=== PATIENT | female | born 1960 | race Caucasian/White ===

== ENCOUNTER → 2017-08-24 10:57 | Outpatient (CLI) | payer BC, SELFPAY ==
--- NOTE | 2017-08-24 11:15 | XR_ITS ---
XR foot LT min 3V, XR ankle LT min 3V Ordering Physician: Yelitza Maldonado DPM Patient Age: 56 years: Female HISTORY: TECHNIQUE: LEFT FOOT 3 views weightbearing LEFT ANKLE 3 view weightbearing COMPARISON :February 03, 2013 left foot series ====== LEFT ANKLE 3 view weightbearing LEFT FOOT 3 views weightbearing These studies are reviewed together. At the left foot, Longitudinal screws enters at the base of the fifth metatarsal (2013 there has been complete healing at the previously noted fracture proximal fifth met partial. Progressive arthritic changes are seen at the tarsometatarsal joints particularly third fourth and fifth. Also arthritic changes throughout the tarsals. . On the current weightbearing lateral view likely rotated somewhat fifth metatarsal is quite inferiorly positioned and appears to be more inferiorly positioned, plantar position than the calcaneus on this particular projection. This yields a somewhat rocker bottom appearance plantar aspect of foot. Similar appearance is seen on the lateral ankle view clinical correlation required. Prominent hammertoe/ flexion deformity at the toes evident on today's again viewed with significant change in this regard since 2012 reviewed . The previous generous 14.5 mm plantar calcaneal spur no longer evident delineated. The left ankle mortise seems to be intact. Again the lateral view is rotated and appears to be distorted as do some of the views at the ankle. Arthritic changes at the tarsals again noted along with a prominent hammer toe/flexion deformity at the toes IMPRESSION: ... Advanced healing now seen at the Previous ORIF proximal fifth metatarsal fracture .... Interval development prominent hammertoe, & flexion deformity at the toes .... Developing arthritic changes tarsal metatarsal joint, and throughout tarsals. The fifth metatarsal is appears quite inferiorly positioned on the current weightbearing somewhat rotated distorted lateral view. Requires correlation. (Question possible rocker-bottom type foot anatomy but for at the inferior lateral foot with this radiographic appearance on today's lateral view)
--- NOTE | 2017-08-24 11:15 | XR_ITS ---
XR ankle RT min 3V, XR foot RT min 3V Ordering Physician: Yelitza Maldonado DPM Patient Age: 56 years: Female HISTORY: Right foot pain Left foot drop TECHNIQUE: 3 views right ankle. Weight-bearing 3 views right foot weightbearing COMPARISON :08/24/2017 left ankle3 views. RIGHT ANKLE 3 VIEWS The ankle mortise is maintained. Talar dome intact. Medial and lateral malleolus intact. A question some minor soft tissue swelling over lateral malleolus. . Generous posterior process of talus RIGHT FOOT 3 VIEWS . . Plantar calcaneal spur, 8-9mm length. Spurring similar spurring near insertion Achilles tendon. Mild pes planus noted. Metatarsals intact.. Mild/moderate flexion deformity second toe noted Right foot is appears significantly less more normal and intact versus the left foot IMPRESSION: /Summary 1. RIGHT ANKLE appears well-maintained. Satisfactory with normal relationships 2. RIGHT FOOT-no prominent findings. Minor observations Developing calcaneal spurs. Borderline to mild pes planus.Flexion deformity second toe
== END ==
PROVIDERS: Visit Provider Podiatrist
DX: M79.672 Pain in left foot (principal); M79.671 Pain in right foot; M21.379 Foot drop, unspecified foot
CPT/HCPCS: 73610; 73630; 87220

== ENCOUNTER → 2017-11-09 13:52 | Outpatient (POV) | payer BC, SELFPAY ==
[2017-11-09 13:58] VITALS: BP 139/88; PULSE 89; RESP 20; O2SAT 95; BMI 34.0
--- NOTE | 2017-11-09 14:27 | HMH.PMCON ---
Assessment and Plan (1) CRPS (complex regional pain syndrome type I) Current visit: Yes Status: Chronic Qualifiers: Complex regional pain syndrome affected site: lower extremity Laterality: left Qualified Code(s): G90.522 - Complex regional pain syndrome I of left lower limb Category: Medical Code(s): G90.50 - Complex regional pain syndrome I, unspecified - Assessment and plan all Dx Assessment and Plan for all problems:: We will send this patient for psychological evaluation to see if she has a DRG stimulator candidate. I believe that this would be very beneficial for her. I believe it would help with her pain symptoms and make her more functional. Patient is not opiate candidate and she has tried and failed anti-inflammatories along with other medications. Patient's tried and failed physical therapy and bracing. This note was dictated using voice recognition software and may contain errors or omissions HPI - Data of Consult Consult date: 11/09/17 Requesting Physician: Betty Botello APRN Primary Care Provider: Himanshu Pierce MD Family Provider: Referral Provider, - Consult Narrative Reason for consult: Left foot and leg pain History of present illness: Ms. Schafer is a 57 year old female who presents today for consult of chronic foot pain. Patient had compartment syndrome after she tried to commit suicide and passed out laying on her leg for a long period of time. Patient had a fasciotomy of left leg. Patient developed foot drop after that. Patient has been seen by podiatry and was recommended to have surgery however she is taking care of both of her parents. Patient states she does not have the ability to take time away from them for recovery from surgery. Patient is interested in possible neuro stimulation. Patient is not on any blood thinners. Patient has tried and failed bracing, physical therapy. Patient rates her pain a 7 out of 10 stating that she has numbness and tingling in her left leg along with sharp shooting pain at times. Patient is not an opiate candidate CC: Betty Botello APRN [facility] History I have reviewed the patient's past medical history: Yes Medical History: Denies:: Diabetes Mellitus Type 1, Diabetes Mellitus Type 2, Kidney Stones Other Medical History: Reports: Anemia, Arthritis Other Surgeries: Yes: (1992) Amputation: No Fractures: Yes (ORIF 5th metatarsal) - *Social History Educational Level: Completed Graduate School Smoking Status: Never smoker Tobacco Type: cigarettes Alcohol Intake: never Occupational Status: retired, disabled Housing: house Household Members: family - Psychiatric History Expresses thoughts of harming self/others: None Suicide Plan Description: No Plan *Family Hx:: Diabetes, Cancer, Stroke, Hyperlipidemia, Hypertension Review of Systems - Review of Systems ROS General: no recent weight change, no fever, no sleep disturbances Respiratory: no cough, no shortness of air, no recurring pulmonary infections Cardiovascular/Peripheral Vascular: No chest pain, No palpitations, no edema, no shortness of breath. Gastrointestinal: no incontinence, normal bowel movements reported Genitourinary: no incontinence Musculoskeletal: Left leg pain, left foot pain Psychiatric: normal mood/ affect, Neurological: [denies weakness in extremities], [denies balance issues] Meds Home Medications Medication Instructions Recorded Confirmed Type alprazolam 0.5 mg tablet 0.5 mg PO TID 30 Days #90 tab 08/24/17 History gabapentin 600 mg tablet 1,200 mg PO TID 30 Days #90 tab 08/24/17 History lamotrigine 100 mg tablet 100 mg PO DAILY 30 Days #30 08/24/17 History venlafaxine ER 150 mg 150 mg PO BID 30 Days #30 08/24/17 History capsule,extended release 24 hr Allergies Allergy/AdvReac Type Severity Reaction Status Date / Time No Known Allergies Allergy Unverified 08/24/17 11:55 Objective Vital signs
--- NOTE | 2017-11-09 14:30 | P.CONS_ITS ---
Assessment and Plan (1) CRPS (complex regional pain syndrome type I) Current visit: Yes Status: Chronic Qualifiers: Complex regional pain syndrome affected site: lower extremity Laterality: left Qualified Code(s): G90.522 - Complex regional pain syndrome I of left lower limb Category: Medical Code(s): G90.50 - Complex regional pain syndrome I, unspecified - Assessment and plan all Dx Assessment and Plan for all problems:: We will send this patient for psychological evaluation to see if she has a DRG stimulator candidate. I believe that this would be very beneficial for her. I believe it would help with her pain symptoms and make her more functional. Patient is not opiate candidate and she has tried and failed anti- inflammatories along with other medications. Patient's tried and failed physical therapy and bracing. This note was dictated using voice recognition software and may contain errors or omissions HPI - Data of Consult Consult date: 11/09/17 Requesting Physician: Betty Botello APRN Primary Care Provider: Himanshu Pierce MD Family Provider: Referral Provider, - Consult Narrative Reason for consult: Left foot and leg pain History of present illness: Ms. Schafer is a 57 year old female who presents today for consult of chronic foot pain. Patient had compartment syndrome after she tried to commit suicide and passed out laying on her leg for a long period of time. Patient had a fasciotomy of left leg. Patient developed foot drop after that. Patient has been seen by podiatry and was recommended to have surgery however she is taking care of both of her parents. Patient states she does not have the ability to take time away from them for recovery from surgery. Patient is interested in possible neuro stimulation. Patient is not on any blood thinners. Patient has tried and failed bracing, physical therapy. Patient rates her pain a 7 out of 10 stating that she has numbness and tingling in her left leg along with sharp shooting pain at times. Patient is not an opiate candidate CC: Betty Botello APRN [facility] History I have reviewed the patient's past medical history: Yes Medical History: Denies:: Diabetes Mellitus Type 1, Diabetes Mellitus Type 2, Kidney Stones Other Medical History: Reports: Anemia, Arthritis Other Surgeries: Yes: (1992) Amputation: No Fractures: Yes (ORIF 5th metatarsal) - *Social History Educational Level: Completed Graduate School Smoking Status: Never smoker Tobacco Type: cigarettes Alcohol Intake: never Occupational Status: retired, disabled Housing: house Household Members: family - Psychiatric History Expresses thoughts of harming self/others: None Suicide Plan Description: No Plan *Family Hx:: Diabetes, Cancer, Stroke, Hyperlipidemia, Hypertension Review of Systems - Review of Systems ROS General: no recent weight change, no fever, no sleep disturbances Respiratory: no cough, no shortness of air, no recurring pulmonary infections Cardiovascular/Peripheral Vascular: No chest pain, No palpitations, no edema, no shortness of breath. Gastrointestinal: no incontinence, normal bowel movements reported Genitourinary: no incontinence Musculoskeletal: Left leg pain, left foot pain Psychiatric: normal mood/ affect, Neurological: [denies weakness in extremities], [denies balance issues] Meds Home Medications Medication Instructions Recorded Confirmed Type alprazolam 0.5 mg tablet 0.5 mg PO TID 30
== END ==
PROVIDERS: PCP Internal Medicine Adolescent Medicine; Visit Provider Clinical Nurse Specialist Family Health
DX: G90.522 Complex regional pain syndrome I of left lower limb (principal)
CPT/HCPCS: 99202

== ENCOUNTER → 2018-06-14 08:41 | Outpatient (CLI) | payer BC, SELFPAY ==
--- NOTE | 2018-06-14 08:45 | MM_ITS ---
MM Dig screening mamm BI w/CAD ORDERING PHYSICIAN : Himanshu Pierce MD PATIENT AGE: 57 years GENDER: Female COMPARISON: July 2015, November 2016, INDICATION: ITS.REASON: SCREENING.57-year-old. No hormones. No new complaints. TECHNIQUE: Standard CC and MLO images were obtained. R2 CAD reviewed. FINDINGS: Low-density breast bilaterally with generalized fatty replacement. No dominant mass nor suspicious calcifications in either breast. No new areas of concern. Bilateral follow-up in one year adequate. IMPRESSION: Negative Stable bilateral mammogram. Low-density breast with generalized fatty replacement.. BI-RADS Category: 1 Negative RECOMMENDED FOLLOW-UP: 1YR 1 YEAR FOLLOW-UP (A letter has been sent to the patient regarding results of the study.)
== END ==
PROVIDERS: PCP Internal Medicine Adolescent Medicine; Visit Provider Internal Medicine Adolescent Medicine
DX: Z12.31 Encounter for screening mammogram for malignant neoplasm of breast (principal)
CPT/HCPCS: 77067

== ENCOUNTER → 2019-08-01 14:38 | Outpatient (CLI) | payer BC, SELFPAY ==
--- NOTE | 2019-08-01 14:45 | MM_ITS ---
PROCEDURE: MM DIG SCREENING MAMM BI W/CAD CLINICAL INDICATION: SCREENING There is no personal or family history of breast cancer. COMPARISON: [facility] DIG MAMM-SCREEN KAT from 07/19/2015 [facility] DIG MAMM-SCREEN KAT W/CAD from 11/13/2016 [facility] MM Dig screening mamm BI w/CAD from 06/14/2018 TECHNIQUE: Standard CC and MLO images were obtained. R2 CAD reviewed. FINDINGS: The breasts are composed primarily of fat with minimal scattered fibroglandular densities throughout each breast. The findings are bilateral and symmetrical. There is a stable tiny nodular benign-appearing density upper-outer quadrant right breast. There is no suspicious lesion and no suspicious microcalcifications. IMPRESSION: Fatty type breast parenchyma with no suspicious lesions seen BI-RAD Category: 2 Benign Finding(s) FOLLOW-UP: 1YR 1 Year Follow-up (A letter has been sent to the patient regarding results of the study.) Dictated by: Dr. Vasile Braden MD 08/03/2019 11:[address] Vasile Braden MD in [place] 08/03/2019 11:54
== END ==
PROVIDERS: PCP Internal Medicine Adolescent Medicine; Visit Provider Nurse Practitioner Family
DX: Z12.31 Encounter for screening mammogram for malignant neoplasm of breast (principal)
CPT/HCPCS: 77067

== ENCOUNTER → 2021-01-02 14:16 | Outpatient (CLI) | payer BC, SELFPAY ==
[2021-01-02 16:03] LABS: Chloride 105 mmol/L (98-107); Potassium 4.2 mmoL/L (3.5-5.1); Sodium 138 mmol/L (136-145)
[2021-01-02 16:05] LABS: Alanine Aminotransferase 22 U/L (12-78); Albumin Level 4.5 g/dl (3.5-5.0); Albumin/Globulin Ratio 1.7 (1.1-1.8); Alkaline Phosphatase 65 U/L (38-126); Anion Gap 12.2 mEq/L (5-15); Aspartate Amino Transferase 32 U/L (14-36); Bilirubin,Total 0.5 mg/dl (0.2-1.3); Blood Urea Nitrogen 13 mg/dl (7-17); Carbon Dioxide 25 mmol/L (22.0-30.0); Estimated Glomerular Filt Rate 73 ml/min (>60); GFR (African American) 89 ML/MIN (>60); Globulin 2.6 g/dL (1.3-3.2); Total Protein,Serum 7.1 g/dl (6.3-8.2)
[2021-01-02 16:06] LABS: Calcium 8.8 mg/dl (8.4-10.2); Chol/HDL Ratio 3.2 (1-3.5); Cholesterol 225 mg/dl (140-200); Glucose 80 mg/dl (74-100); HDL Cholesterol 71 mg/dl (40-60); Triglycerides 226 mg/dl (30-150); VLDL Cholesterol 45 mg/dL (0-40)
[2021-01-02 16:17] LABS: Direct LDL Cholesterol 118.24 mg/dL (100-129)
== END ==
PROVIDERS: Visit Provider Nurse Practitioner Family
DX: E78.1 Pure hyperglyceridemia (principal); E55.9 Vitamin D deficiency, unspecified
CPT/HCPCS: 80053; 80061; 82306

== ENCOUNTER → 2021-02-21 15:02 | Outpatient (POV) | payer BC, SELFPAY ==
[2021-02-21 16:05] VITALS: BP 155/95; PULSE 77; RESP 18; O2SAT 98; BMI 31.4
--- NOTE | 2021-02-21 16:51 | HMH.PMCON ---
Assessment and Plan (1) CRPS (complex regional pain syndrome type I) Status: Chronic Qualifiers: Complex regional pain syndrome affected site: lower extremity Laterality: left Qualified Code(s): G90.522 - Complex regional pain syndrome I of left lower limb Category: Medical Code(s): G90.50 - Complex regional pain syndrome I, unspecified - Assessment and plan all Dx Assessment and Plan for all problems:: Patient has tried and failed conservative therapies of physical therapy for more than 6 weeks in the past along with continued home stretching. She has tried anti-inflammatories in the past as well. She is taking gabapentin as prescribed by her primary care provider. This does give her some relief, however, she continues to have significant pain. We did discuss possible spinal cord stimulation, however, she would like to try noninvasive options first. We will schedule her for a #1 sympathetic nerve block. She will continue with home stretching and ice and heat therapies. We will see her back after her injection for reevaluation of symptoms. Risks and benefits of the procedure have been explained to the patient. Patient would like to proceed with the procedure. Possible side effects of corticosteroids have been discussed with the patient. Patient has been instructed to contact the clinic with any concerns before the next appointment. Dr. Hernandez has reviewed this note and agrees with this plan of care. This note was dictated using voice recognition software and make contain errors or omissions. HPI - Data of Consult Patient: new to practice Consult date: 02/21/21 Requesting Physician: Jacquelyn Chapin APRN Primary Care Provider: Himanshu Pierce MD - Consult Narrative Reason for consult: Left foot pain History of present illness: Ms. Schafer is a 60 year old female who presents today for consultation for chronic left foot pain. She was referred to us by Dr. Dugan. Patient says that in 2012 she did have an attempt of suicide. At that time she fell and was unconscious for a prolonged period of time. When she did have a fall, her body weight was on her left foot. She says that she developed compartment syndrome to the area. She did undergo fasciotomies in the past. Since then, she has continued to have significant pain to her left foot. She does wear a brace to her left foot. She walks on the outer edge of her foot. This is where most of her pain is at along with the arch of her foot. She says that it has been recommended she undergo surgical intervention, however, she is currently caring for her elderly mother and is unable to undergo surgical intervention due to downtime. She says her father is and she is the only one able to care for her mother at this time. The patient does take oral medications of gabapentin 600 mg 2 tablets p.o. 3 times daily. She says this does give her some relief, however, she does continue to have significant pain. She is interested in injective therapy. CC: Jacquelyn Chapin APRN [facility] History Medical History: Reports:: Gastroesophageal Reflux Disease(GERD) Denies:: Aneurysm, Asthma, Cancer, Congestive Heart Failure, Chronic Obstructive Pulmonary Disease (COPD), Cerebrovascular Accident, Diabetes Mellitus Type 1, Diabetes Mellitus Type 2, Gastrointestinal Bleed, Hyperlipidemia, Hypertension, Kidney Stones, Myocardial Infarction, Peripheral Artery Disease, Pulmonary Embolism *Have you ever received a pneumonia vaccine?: Yes *Have you received a flu vaccine this season?: Yes Other Medical History: Reports: Anemia, Arthritis. Denies: Cataracts, Glaucoma, Hypothyroidism, Thyroid Disease Other Surgeries: Yes: (1992), Tubal Ligation, Other (gastric bypss) Amputation: No Fractures: Yes (ORIF 5th metatarsal) - *Social History Smoking Status: Never smoker Tobacco Type: cigarettes Alcohol Intake: never Alcohol Intake Frequency:: 0-2 drinks per day *Occupational Status:
== END ==
PROVIDERS: PCP Internal Medicine Adolescent Medicine; Visit Provider Clinical Nurse Specialist Family Health
DX: G90.522 Complex regional pain syndrome I of left lower limb (principal)
CPT/HCPCS: 99202; G0463

== ENCOUNTER → 2021-07-09 15:25 | Outpatient (CLI) | payer BC, SELFPAY ==
--- NOTE | 2021-07-09 15:26 | MM_ITS ---
PROCEDURE INFORMATION: Exam: MG Bilateral Screening 3D Mammography Exam date and time: 07/09/2021 3:26 PM Age: 60 years old Clinical indication: Encounter for screening mammogram for malignant neoplasm of breast TECHNIQUE: Imaging protocol: Bilateral screening tomosynthesis and 2D mammography including computer-aided detection (CAD) when performed. COMPARISON: 1. MG MM DIG SCREENING MAMM BI W/CAD 08/01/2019 3:11 PM 2. MG [facility] MM Dig screening mamm BI w/CAD 06/14/2018 9:02 AM 3. MG [facility] DIG MAMM-SCREEN KAT W/CAD 11/13/2016 4:05 PM FINDINGS: MAMMOGRAPHY: Breast composition: There are scattered areas of fibroglandular density. Mass: No suspicious masses. Architectural distortion: No suspicious distortion. Calcifications: No suspicious calcifications. Asymmetric density: None. Skin thickening: None. Axillary adenopathy: None. IMPRESSION: No mammographic evidence of malignancy. Annual screening is recommended unless otherwise clinically indicated. ASSESSMENT: BI-RADS Category 1: Negative
== END ==
PROVIDERS: PCP Internal Medicine Adolescent Medicine; Visit Provider Internal Medicine Adolescent Medicine
DX: Z12.31 Encounter for screening mammogram for malignant neoplasm of breast (principal)
CPT/HCPCS: 77063; 77067

== ENCOUNTER 2022-08-06 12:29 | Day surgery (SDC) | payer BC, SELFPAY ==
[2022-07-17 14:17] VITALS: BMI 33.4
[2022-08-06 13:11] VITALS: BP 112/94; PULSE 73; RESP 16; TEMP 36.6; O2SAT 97
--- NOTE | 2022-08-06 13:33 | EXP.ANES.CKL ---
[facility] Disclaimer: The information contained in this section may have been updated after the patient was seen, as this information can be updated by other users. Medical History Allergies Seizure disorder Surgical History History of bilateral tubal ligation History of section History of fasciotomy Hx of bariatric surgery Family History Other No significant family history Social History Smoking Status: Never smoker alcohol intake: never substance use type: denies use current occupational status: retired Travel in the last 8 weeks: None household members: family housing: house special markos needs: No agree to transfusion: No do you feel safe at home: Yes victim of physical abuse: No victim of emotional abuse: No victim of sexual abuse: No would you like helpful sources: No [facility] Anesthesia Checklist Patient Identification Patient Identification: Arm Band Structural Data Admitted From: Home Planned Operative Procedure/s: colonoscopy Consent for Planned Operative Procedure(s) Verified: Yes Verified Documents: Surgical Consent and History and Physical NPO Status Verified Time NPO: 00:00 Additional verifications Anesthesia Reactions: No Airway Assessment C-Spine Mobility Assessed: Yes TMJ Mobility Assessed: Yes Dentition: Good Dentition Neurological Assessment Level of Consciousness: Awake and Alert Anesthesia Plan Anesthesia Risk discussed: Yes Anesthesia Plan: Verified ASA Class: II Anesthesia Type: MAC
[2022-08-06 13:40] VITALS: O2SAT 97
[2022-08-06 14:07] VITALS: BP 115/72; PULSE 78; RESP 16; O2SAT 96
--- NOTE | 2022-08-06 14:07 | HMH.SCOPE ---
Procedure: Date: 08/06/22 Patient Date of :: 1960 Procedure Performed:: colonoscopy Indications:: The patient is a 61 year old who presents for colonoscopy evaluation of a positive cologuard test Performing Provider:: Jose Lovelace MD Referring Provider:: Ginny Barrera APRN Sedation:: See RN records Procedure:: After placing the patient in the left lateral decubitus position, the colonoscopy was gently inserted into the rectum and under direct visualization advanced to the cecum which was identified by transillumination in the right lower quadrant, identification of the ileocecal valve, appendiceal orifice, and cecal strap. Color, texture, mucosa, and anatomy of the colon were carefully examined with the scope. Findings:: Anal canal: normal Rectum: Internal hemorrhoids Sigmoid colon: Diverticulosis Descending colon: Two sessile polyps less than 6 mm in size. Removed with cold snare polypectomy. Splenic flexure: normal Transverse colon: normal without polyps or inflammatory changes Hepatic flexure: normal Ascending colon: normal without polyps or inflammatory changes Cecum: normal Terminal ileum: not visualized Impression: Two polyps of descending colon (one polyp not retrieved) Floppy colon Recommendations:: Await pathology results Repeat colonoscopy in 5 years Complications:: none Estimated blood obtained (mL): 0
[2022-08-06 14:17] VITALS: BP 143/80; PULSE 80; RESP 18; O2SAT 96
[2022-08-06 14:27] VITALS: BP 136/82; PULSE 80; RESP 17; O2SAT 98
[2022-08-06 14:37] VITALS: BP 153/83; PULSE 80; RESP 18; O2SAT 96
== END 2022-08-06 14:50 | disposition home or self-care (01) ==
PROVIDERS: PCP Nurse Practitioner Family; Visit Provider Internal Medicine
PROC: 0DJD8ZZ Inspection of Lower Intestinal Tract, Via Natural or Artificial Opening Endoscopic (ICD-10-PCS; CPT 45378; principal; 2022-08-06 14:00)
DX: R19.5 Other fecal abnormalities (principal); K63.5 Polyp of colon; K64.8 Other hemorrhoids; K57.30 Diverticulosis of large intestine without perforation or abscess without bleeding; Z79.899 Other long term (current) drug therapy
CPT/HCPCS: 45385; 88305

== ENCOUNTER 2023-11-16 13:37 | Outpatient (CLI) | payer BC, SELFPAY ==
--- NOTE | 2023-11-16 13:43 | MM_ITS ---
PROCEDURE INFORMATION: Exam: MG Bilateral Screening 3D Mammography Exam date and time: 11/16/2023 1:40 PM Age: 63 years old Clinical indication: Screening. No family history of breast cancer. TECHNIQUE: Imaging protocol: Bilateral Screening tomosynthesis and 2D mammography including computer-aided detection (CAD) when performed. COMPARISON: 1. MG MM DIG SCREENING MAMM BI W/CAD 07/09/2021 3:40 PM 2. MG MM DIG SCREENING MAMM BI W/CAD 08/01/2019 3:11 PM 3. MG [facility] MM Dig screening mamm BI w/CAD 06/14/2018 9:02 AM 4. MG [facility] DIG MAMM-SCREEN KAT W/CAD 11/13/2016 4:05 PM FINDINGS: MAMMOGRAPHY: Breast composition: There are scattered areas of fibroglandular density. Mass: None. Architectural distortion: None. Calcifications: No suspicious calcifications. Asymmetric density: None. Skin thickening: None. Axillary adenopathy: None. IMPRESSION: No mammographic evidence of malignancy. Annual screening is recommended unless otherwise clinically indicated. ASSESSMENT: BI-RADS Category 1: Negative
== END 2023-11-16 23:59 ==
LOC: RAD 13:38
PROVIDERS: PCP Internal Medicine Adolescent Medicine; Visit Provider Internal Medicine Adolescent Medicine
DX: Z12.31 Encounter for screening mammogram for malignant neoplasm of breast (principal)
CPT/HCPCS: 77063; 77067

== ENCOUNTER 2024-12-16 14:54 | Outpatient (CLI) | payer BC, SELFPAY ==
--- NOTE | 2024-12-16 14:56 | MM_ITS ---
PROCEDURE INFORMATION: Exam: MG Bilateral Screening 3D Mammography Exam date and time: 12/16/2024 3:20 PM Age: 64 years old Clinical indication: Screening examination TECHNIQUE: Imaging protocol: Bilateral Screening tomosynthesis and 2D mammography including computer-aided detection (CAD) when performed. COMPARISON: 1. MG MM DIG SCREENING MAMM BI W/CAD 11/16/2023 1:40 PM 2. MG MM DIG SCREENING MAMM BI W/CAD 07/09/2021 3:40 PM FINDINGS: MAMMOGRAPHY: Breast composition: The breasts are almost entirely fatty. Mass: None. Architectural distortion: None. Calcifications: No suspicious calcifications. Asymmetric density: None. Skin thickening: None. Axillary adenopathy: None. IMPRESSION: No mammographic evidence of malignancy. Annual screening is recommended unless otherwise clinically indicated. ASSESSMENT: BI-RADS Category 1: Negative.
== END 2024-12-16 23:59 | disposition home or self-care (01) ==
LOC: RAD 14:55
PROVIDERS: PCP Internal Medicine Adolescent Medicine; Visit Provider Nurse Practitioner Family
DX: Z12.31 Encounter for screening mammogram for malignant neoplasm of breast (principal)
CPT/HCPCS: 77063; 77067